=== PATIENT | male | born 1955 | race Caucasian/White ===

== ENCOUNTER 2017-02-11 10:53 | Emergency (ER) | payer BC ==
[2017-02-11 10:59] VITALS: BP 137/81; BMI 29.5
[2017-02-11] MEDS ORDERED: TORADOL 60 MG VIAL IM ONE (11:50)
[2017-02-11] MEDS ORDERED: DECADRON INJ IM ONE (11:50)
--- NOTE | 2017-02-11 11:56 | DR.EXTPAIN ---
HPI - Time seen Time seen: 11:40 - PCP Primary Care Physician: MERRITT - Complaint/Symptoms Chief Complaint Doctor Comments: L hand pain Chief Complaint:: WOKE UP THIS MORNING WITH KNOT ABOVE WRIST AND COULD NOT MOVE WRIST. SHARP PAIN - Source History Provided: Patient - Mode of arrival Mode of Arrival: Ambulatory - Timing Onset of Chief Complaint: 02/11/17 - Context History of: None - Associated signs and symptoms Associated Signs and Symptoms: Other (knot on lateral aspect of flexor surface of right wrist) PMH - PMH Past Medical History: Yes Past Medical History: COPD, Hypertension Past Surgical History: Yes Surgical History: Ortho Surgery, Other Past Surgical History Comment: HERNIA REPAIR - Family History History of Family Medical Conditions: Yes Family Medical History: Cancer, [place], Hypertension - Social History Type of Tobacco Use: Cigarettes Does any household member use tobacco: No Alcohol Use: Occasionally Do you use any recreational Drugs:: No Lives With: Family Lives Where: Home - infectious screening In the last 2 months have you had wt loss of >10#?: NO Have you had fever, night sweats or hemotysis?: No Have you traveled outside the country in the last 6 months?: No Isolation: Standard ROS - Review of Systems Constitutional: No Symptoms Reported Eyes: No Symptoms Reported ENTM: No Symptoms Reported Respiratoy: No Symptoms Reported Cardiovascular: No Symptoms Reported Gastrointestinal/Abdominal: No Symptoms Reported Genitourinary: No Symptoms Reported Neurological: No Symptoms Reported Musculoskeletal: Hand (hand pain acute onset w/o trauma) Hematologic/Lymphatic: No Symptoms Reported Endocrine: No Symptoms Reported Psychiatric: No Symptoms Reported All Other Systems: Reviewed and Negative PE - Vital Signs Vitals: Temperature 99 F Pulse Rate 81 Respiratory Rate 22 Blood Pressure [Left Arm] 135/65 Blood Pressure [Right Arm] 120/61 Blood Pressure 137/81 O2 Sat by Pulse Oximetry 96 - General Limitations: No Limitations General Appearance: Alert, In Distress - Neck Neck Exam: Normal Inspection - Chest Chest Inspection: Normal Inspection - Respiratory Respiratory Exam: Normal Lung Sounds Bilat - Cardiovascular Cardiovascular Exam: Regular Rate, Normal Rhythm, Normal Heart Sounds - Upper Extremities Hand Exam: Tenderness, Swelling, Erythema Neuromotor Exam: Normal Exam Neurosensory Exam: Normal Exam MDM - Differential Diagnosis Differential Diagnosis: Other (hand pain) ROR - Labs Reviewed Result Diagrams: 02/11/17 11:59 02/11/17 11:59 Laboratory: WBC 11.6 X10^3/uL (3.6-10.0) H 02/11/17 11:59 RBC 4.37 X10^6/uL (4.7-6.0) L 02/11/17 11:59 Hgb 14.9 g/dL (13.5-18.0) 02/11/17 11:59 Hct 43.4 % (42.0-54.0) 02/11/17 11:59 MCV 99.4 fL (80.0-100.0) 02/11/17 11:59 MCH 34.1 pg (27.0-34.0) H 02/11/17 11:59 MCHC 34.3 g/dL (33.0-35.0) 02/11/17 11:59 RDW 12.5 % (11.6-16.5) 02/11/17 11:59 Plt Count 281 X10^3/uL (150.0-450.0) 02/11/17 11:59 MPV 8.5 fL (7.4-11.0) 02/11/17 11:59 Neut % 73.9 % (42.0-75.0) 02/11/17 11:59 Lymph % 16.8 % (21.0-51.0) L 02/11/17 11:59 [place] % 6.5 % (0.0-13.0) 02/11/17 11:59 Eos % 1.6 % (0.9-2.9) 02/11/17 11:59 Baso % 1.2 % (0.2-1.0) H 02/11/17 11:59 Neut # 8.5 x10^3/uL (2.2-4.8) H 02/11/17 11:59 Lymph # 1.9 X10^3/uL (1.3-2.9) 02/11/17 11:59 [place] # 0.8 x10^3/uL (0.3-0.8) 02/11/17 11:59 Eos # 0.2 x10^3/uL (0.0-0.2) 02/11/17 11:59 Baso # 0.1 X10^3/uL (0.0-0.1) 02/11/17 11:59 Absolute Nucleated RBC 0.1 /100WBC 02/11/17 11:59 Sodium 139 mmol/L (136-145) 02/11/17 11:59 Corrected Sodium TNP 02/11/17 11:59 Potassium 4.0 mmol/L (3.5-5.1) 02/11/17 11:59 Chloride 104 mmol/L (98-107) 02/11/17 11:59 Carbon Dioxide 26.3 mmol/L (21-32) 02/11/17 11:59 BUN 12 mg/dL (7-18) 02/11/17 11:59 Creatinine 0.90 mg/dL (0.70-1.30) 02/11/17 11:59 Est GFR (MDRD) Af Amer > 60 (>60) 02/11/17 11:59 Est GFR (MDRD) Non-Af > 60 (>60) 02/11/17 11:59 Glucose 103 mg/dL (65-99) H 02/11/17 11:59 Uric Acid 4.3 mg/dL (3.5-7.2) 02/11/17 11:59 Calcium 8.8 mg/dL (8.5-10.1) 02/11/17 11:59 Corrected Calcium TNP 02/11/17 11:59 Total Bilirubin 0.30 mg/dL (0.2-1.0) 02/11/17 11:59 AST 20 Units/L (15-37) 02/11/17 11:59 ALT 30 Units/L (12-78) 02/11/17 11:59 Alkaline Phosphatase 97 Units/L (46-116) 02/11/17 11:59 Total Protein 7.6 g/dL (6.4-8.2) 02/11/17 11:59 Albumin 3.5 g/dL (3.4-5.0) 02/11/17 11:59 Globulin 4.1 g/dL (2.5-4.5) 02/11/17 11:59 Albumin/Globulin Ratio 0.9 Ratio (1.1-2.1) L 02/11/17 11:59 - Diagnosis Discharge Problem: Tenosynovitis of finger and hand, Gout attack - Discharge Plan Disposition: HOME, SELF-CARE Condition: Stable - Follow ups/Referrals Follow ups/Referrals: Eugene Khan [Primary Care Provider] - 3 days - Instructions Instructions: Low-Purine Diet, Gout, [id number]
[2017-02-11] MEDS ORDERED: DECADRON INJ ONE (12:01)
[2017-02-11] MEDS ORDERED: TORADOL 60 MG VIAL ONE (12:01)
[2017-02-11 12:12] LABS: BASOPHILS # (AUTO) 0.1 X10^3/uL (0.0-0.1); BASOPHILS % (AUTO) 1.2 % (0.2-1.0); EOSINOPHILS # (AUTO) 0.2 x10^3/uL (0.0-0.2); EOSINOPHILS % (AUTO) 1.6 % (0.9-2.9); HEMATOCRIT 43.4 % (42.0-54.0); HEMOGLOBIN 14.9 g/dL (13.5-18.0); LYMPHOCYTES # (AUTO) 1.9 X10^3/uL (1.3-2.9); LYMPHOCYTES % (AUTO) 16.8 % (21.0-51.0); MEAN CORPUSCULAR HEMOGLOBIN 34.1 pg (27.0-34.0); MEAN CORPUSCULAR HGB CONC 34.3 g/dL (33.0-35.0); MEAN CORPUSCULAR VOLUME 99.4 fL (80.0-100.0); MEAN PLATELET VOLUME 8.5 fL (7.4-11.0); MONOCYTES # (AUTO) 0.8 x10^3/uL (0.3-0.8); MONOCYTES % (AUTO) 6.5 % (0.0-13.0); NEUTROPHILS # (AUTO) 8.5 x10^3/uL (2.2-4.8); NEUTROPHILS % (AUTO) 73.9 % (42.0-75.0); PLATELET COUNT 281 X10^3/uL (150.0-450.0); RED BLOOD COUNT 4.37 X10^6/uL (4.7-6.0); RED CELL DISTRIBUTION WIDTH 12.5 % (11.6-16.5); WHITE BLOOD COUNT 11.6 X10^3/uL (3.6-10.0)
[2017-02-11 12:20] LABS: ALANINE AMINOTRANSFERASE 30 Units/L (12-78); ALBUMIN 3.5 g/dL (3.4-5.0); ALKALINE PHOSPHATASE 97 Units/L (46-116); ASPARTATE AMINO TRANSFERASE 20 Units/L (15-37); BLOOD UREA NITROGEN 12 mg/dL (7-18); CALCIUM 8.8 mg/dL (8.5-10.1); CARBON DIOXIDE 26.3 mmol/L (21-32); CHLORIDE 104 mmol/L (98-107); GLUCOSE 103 mg/dL (65-99); SODIUM 139 mmol/L (136-145); TOTAL PROTEIN 7.6 g/dL (6.4-8.2); URIC ACID 4.3 mg/dL (3.5-7.2); eGFR BLACK RACES > 60 (>60); eGFR NON BLACK RACES > 60 (>60)
--- NOTE | 2017-02-11 13:07 | RAD ---
HISTORY: Right arm and wrist pain, swelling, no known injury Study: Right hand and wrist radiographs Comparison: None Findings: Normal alignment. No acute fracture or dislocation. There is mild soft tissue swelling along the aquilino tral and radial aspect of the wrist and distal forearm and mild swelling at the volar aspect of the hand. There are degenerative changes at the radiocarpal joint, distal radial ulnar joint, 1st carpo metacarpal joint, and diffusely involving the interphalangeal joints. IMPRESSION: 1. Soft tissue swelling and degenerative changes as described. No acute osseous abnormality. Reported By:
== END 2017-02-11 13:50 | disposition home or self-care (01) ==
LOC: ER 11:10
DX: M10.9 Gout, unspecified (principal); M65.849 Other synovitis and tenosynovitis, unspecified hand; M79.89 Other specified soft tissue disorders
CPT/HCPCS: 36415; 73100; 73130; 80053; 84550; 85025; 96372; 99282; J1100; J1885